=== PATIENT | female | born 1935 | race Caucasian/White ===

== ENCOUNTER 2020-11-14 13:20 | Emergency (ER) | payer MEDICARE ==
[~2020-11-14] VITALS: Ht 170.2 cm; Wt 62.6 kg
--- NOTE | 2020-11-14 14:09 | NUR ---
DR. BAUTISTA AT BEDSIDE FOR EVAL.
--- NOTE | 2020-11-14 14:16 | NUR ---
RIGHT NOSTRIL STOPPED BLEEDING. LEFT SIDE STARTED.
[2020-11-14] MEDS ORDERED: TRANEXAMIC ACID 1,000 MG/10 ML VIAL ONE (14:19)
--- NOTE | 2020-11-14 14:24 | NUR ---
TRANEXAMIC ACID SOAKED ON A GAUZE AND APPLIE DTO ANJANA. NOSTRILS BY DR. BAUTISTA
[2020-11-14] MEDS ORDERED: TRANEXAMIC ACID 1,500 MG in IV NS 0.9% 50 ML IV ONE (14:30)
[2020-11-14] MEDS ORDERED: LIDOCAINE VISCOUS 2% UD 15 ML UDC ONE (14:33)
[2020-11-14] MEDS ORDERED: LET SOLN TOPICAL 8 ML UDC TP ONE (14:34)
--- NOTE | 2020-11-14 14:39 | NUR ---
R NOSTRILS BLED AGAIN. RHINO ROCKET IN PLACED BY DR. BAUTISTA.
[2020-11-14] MEDS ORDERED: LIDOCAINE 2% JEL UROJET 10 ML MM ONE (15:00)
--- NOTE | 2020-11-14 15:11 | NUR ---
RHINO ROCKET IN PLACED. NO BLEEDING NOTED AT THIS TIME. PATIENT AMBULATORYW ITH STEADY GAIT.
[2020-11-14] MEDS ORDERED: CEPH500C2 PO (15:23)
[2020-11-14 15:27] VITALS: BP 147/75
[2020-11-14] MEDS ORDERED: LIDOCAINE VISCOUS 2% UD 15 ML UDC MM ONE (15:30)
== END 2020-11-14 15:28 | disposition home or self-care (01) ==
LOC: ER 13:24
DX: R04.0 Epistaxis (principal); Z88.5 Allergy status to narcotic agent
CPT/HCPCS: 30903; 99284; A4217